=== PATIENT | male | born 1995 | race Caucasian/White ===

== ENCOUNTER 2021-05-13 11:24 | Inpatient (IN) ==
[2021-05-13] MEDS ORDERED: SODIUM CHLORIDE 0.9% 1,000 ML IV STA (11:58)
[2021-05-13] MEDS ORDERED: ALBUTEROL/IPRATROPIUM 3 ML NEB RESP TX STA (12:00)
[2021-05-13 12:33] LABS: Basophils % 0.2 % (0.0-0.8); Eosinophils # 0.1 10*3/uL (0.0-0.87); Eosinophils % 1.1 % (0.00-10.9); Hematocrit 42.5 VOL% (42.0-52.0); Hemoglobin 13.9 GM/DL (14.0-18.0); Immature Granulocytes % 0.6 %; Immature Granulocytes Absolute 0.07 #; Lymphocytes # 1.9 10*3/uL (1.4-4.0); Lymphocytes % 16.9 % (21.2-54.2); Mean Corpuscular HGB Conc 32.7 GM/DL (32-36); Mean Corpuscular Volume 87.4 FL (87-102); Mean Platelet Volume 10.7 FL (9.6-12.0); Monocytes % 8.8 % (1.7-12.7); Neutrophils % 72.4 % (38.7-73.9); Platelet Count 206 T/CUMM (130-400); Red Blood Count 4.86 MC/CUMM (3.8-5.5)
[2021-05-13 12:50] LABS: Albumin 2.9 G/DL (3.4-5.0); Bilirubin,Total 0.5 MG/DL (0.20-1.00); Calcium 9.3 MG/DL (8.5-10.1); Osmolality,Calculated 281.4 MOS/KG (273-304); Potassium 3.8 MMOL/L (3.5-5.1); Total Protein 7.6 G/DL (6.4-8.2)
[2021-05-13 13:35] LABS: Ferritin 1236.5 ng/ml (26-388)
[2021-05-13] MEDS ORDERED: ONDANSETRON 4 MG/2 ML VIAL IV PRN (17:22)
[2021-05-13] MEDS ORDERED: ACETAMINOPHEN 325 MG TABLET PO PRN (17:22)
[2021-05-13] MEDS ORDERED: GLUCAGON 1 MG VIAL IM PRN (17:22)
[2021-05-13] MEDS ORDERED: DEXTROSE 50% 25 GM/50 ML VIAL IV PRN (17:22)
[2021-05-13] MEDS ORDERED: AZITHROMYCIN INJ 500 MG in SODIUM CHLORIDE 0.9% 250 ML IV ONE (17:26)
[2021-05-13] MEDS ORDERED: MELATONIN 3 MG TABLET PO PRN (17:26)
[2021-05-13] MEDS: ENOXAPARIN 40 MG/0.4 ML SYRINGE SUBCUT SCH ×2 (17:45→21:08)
[2021-05-13] MEDS ORDERED: IVERMECTIN 3 MG TABLET PO SCH (18:30)
[2021-05-13] MEDS: FAMOTIDINE 20 MG TABLET PO SCH (21:07)
[2021-05-13] MEDS: ASCORBIC ACID 500 MG TABLET PO SCH (21:07)
[2021-05-13] MEDS: cefTRIAXone 1,000 MG in SODIUM CHLORIDE 0.9% 100 ML IV SCH (21:08)
[2021-05-14] MEDS: BENZONATATE 100 MG CAPSULE PO PRN ×3 (04:48→13:12)
[2021-05-14 06:20] LABS: Basophils % 0.4 % (0.0-0.8); Eosinophils # 0.2 10*3/uL (0.0-0.87); Eosinophils % 2.3 % (0.00-10.9); Hematocrit 36.7 VOL% (42.0-52.0); Immature Granulocytes % 0.6 %; Immature Granulocytes Absolute 0.05 #; Lymphocytes # 1.8 10*3/uL (1.4-4.0); Mean Corpuscular HGB Conc 32.7 GM/DL (32-36); Mean Corpuscular Volume 89.3 FL (87-102); Mean Platelet Volume 9.5 FL (9.6-12.0); Monocytes % 10.1 % (1.7-12.7); Neutrophils % 64.6 % (38.7-73.9); Platelet Count 237 T/CUMM (130-400); Red Blood Count 4.11 MC/CUMM (3.8-5.5); White Blood Count 8.2 T/CUMM (4-12)
[2021-05-14 06:51] LABS: Band Neutrophils 1 % (0-10); Eosinophils 2 % (0-10); Lymphocytes 17 % (20-55); Platelet Estimate Normal; Segmented Neutrophils 73 % (50-85); Total Cells Counted 100
[2021-05-14 06:54] LABS: Albumin 2.5 G/DL (3.4-5.0); Bilirubin,Total 0.5 MG/DL (0.20-1.00); Osmolality,Calculated 271.8 MOS/KG (273-304); Potassium 3.8 MMOL/L (3.5-5.1); Total Protein 6.6 G/DL (6.4-8.2)
[2021-05-14 06:55] LABS: Ferritin 893.2 ng/ml (26-388)
[2021-05-14] MEDS: DEXAMETHASONE 4 MG/1 ML VIAL IV SCH (09:00)
[2021-05-14] MEDS: ZINC GLUCONATE 50 MG TABLET PO SCH (09:01)
[2021-05-14] MEDS: ASCORBIC ACID 500 MG TABLET PO SCH ×2 (09:01→20:16)
[2021-05-14] MEDS: CHOLECALCIFEROL 1,000 UNIT TABLET PO SCH (09:01)
[2021-05-14] MEDS: FAMOTIDINE 20 MG TABLET PO SCH ×2 (09:01→20:16)
[2021-05-14] MEDS: AZITHROMYCIN 250 MG TABLET PO SCH (09:01)
[2021-05-14] MEDS: CETIRIZINE 10 MG TABLET PO SCH (09:01)
[2021-05-14] MEDS: ACETAMINOPHEN/CODEINE 120-12 MG/5 ML 12.5 ML UDCUP PO PRN ×2 (11:17→15:37)
[2021-05-14] MEDS ORDERED: REMDESIVIR 200 MG in SODIUM CHLORIDE 0.9% 210 ML IV ONE (15:00)
[2021-05-14] MEDS: ENOXAPARIN 40 MG/0.4 ML SYRINGE SUBCUT SCH (17:39)
[2021-05-14] MEDS: cefTRIAXone 1,000 MG in SODIUM CHLORIDE 0.9% 100 ML IV SCH (20:18)
[2021-05-15 06:11] LABS: Ferritin 599.6 ng/mL (26-388)
[2021-05-15 06:25] LABS: Basophils % 0.2 % (0.0-0.8); Eosinophils % 0.4 % (0.00-10.9); Hematocrit 35.9 VOL% (42.0-52.0); Immature Granulocytes % 0.5 %; Immature Granulocytes Absolute 0.05 #; Lymphocytes # 2.1 10*3/uL (1.4-4.0); Lymphocytes % 22.5 % (21.2-54.2); Mean Corpuscular HGB Conc 33.4 GM/DL (32-36); Mean Corpuscular Volume 88.6 FL (87-102); Mean Platelet Volume 10.5 FL (9.6-12.0); Monocytes % 8.1 % (1.7-12.7); NRBC # 0.02 10*3/uL; Neutrophils % 68.3 % (38.7-73.9); Platelet Count 252 T/CUMM (130-400); Red Blood Count 4.05 MC/CUMM (3.8-5.5); Red Cell Distribution Width 11.9 % (9.3-17.3); White Blood Count 9.3 T/CUMM (4-12)
[2021-05-15] MEDS: AZITHROMYCIN 250 MG TABLET PO SCH (08:29)
[2021-05-15] MEDS: CETIRIZINE 10 MG TABLET PO SCH (08:29)
[2021-05-15] MEDS: ASCORBIC ACID 500 MG TABLET PO SCH ×2 (08:29→20:29)
[2021-05-15] MEDS: DEXAMETHASONE 4 MG/1 ML VIAL IV SCH (08:29)
[2021-05-15] MEDS: FAMOTIDINE 20 MG TABLET PO SCH ×2 (08:30→20:29)
[2021-05-15] MEDS: CHOLECALCIFEROL 1,000 UNIT TABLET PO SCH (08:30)
[2021-05-15] MEDS: ZINC GLUCONATE 50 MG TABLET PO SCH (08:30)
[2021-05-15] MEDS: BENZONATATE 100 MG CAPSULE PO PRN (08:30)
[2021-05-15] MEDS: REMDESIVIR 100 MG in SODIUM CHLORIDE 0.9% 100 ML IV SCH (08:47)
[2021-05-15 12:06] LABS: Albumin 2.4 G/DL (3.4-5.0); Bilirubin,Total 0.5 MG/DL (0.20-1.00); Potassium 4.8 MMOL/L (3.5-5.1)
[2021-05-15] MEDS: ACETAMINOPHEN/CODEINE 120-12 MG/5 ML 12.5 ML UDCUP PO PRN ×2 (12:06→17:19)
[2021-05-15 12:08] LABS: Total Protein 6.5 G/DL (6.4-8.2)
[2021-05-15] MEDS: ENOXAPARIN 40 MG/0.4 ML SYRINGE SUBCUT SCH (17:16)
[2021-05-15] MEDS: cefTRIAXone 1,000 MG in SODIUM CHLORIDE 0.9% 100 ML IV SCH (20:30)
[2021-05-16 05:58] LABS: Basophils % 0.4 % (0.0-0.8); Eosinophils # 0.1 10*3/uL (0.0-0.87); Hematocrit 36.6 VOL% (42.0-52.0); Hemoglobin 12.3 GM/DL (14.0-18.0); Immature Granulocytes % 0.8 %; Immature Granulocytes Absolute 0.08 #; Lymphocytes % 31.3 % (21.2-54.2); Mean Corpuscular HGB Conc 33.6 GM/DL (32-36); Mean Corpuscular Volume 88.2 FL (87-102); Mean Platelet Volume 9.7 FL (9.6-12.0); Monocytes % 7.4 % (1.7-12.7); Neutrophils % 59.1 % (38.7-73.9); Platelet Count 296 T/CUMM (130-400); Red Blood Count 4.15 MC/CUMM (3.8-5.5); White Blood Count 9.6 T/CUMM (4-12)
[2021-05-16 06:32] LABS: Alanine Aminotransferase 90 U/L (16-61); Albumin 2.4 G/DL (3.4-5.0); Alkaline Phosphatase 90 U/L (45-117); Aspartate Amino Transferase 49 U/L (0-37); Bilirubin,Total < 0.39 MG/DL (0.20-1.00); Blood Urea Nitrogen 14 MG/DL (7-18); Calcium 8.7 MG/DL (8.5-10.1); Carbon Dioxide 24 MMOL/L (21-32); Estimated Glom Filtration Rate 155 ML/MIN; Glucose 110 MG/DL (74-106); Osmolality,Calculated 282.3 MOS/KG (273-304); Potassium 3.8 MMOL/L (3.5-5.1); Sodium 141 MMOL/L (136-145); Total Protein 6.3 G/DL (6.4-8.2)
[2021-05-16 06:36] LABS: Ferritin 445.4 ng/mL (26-388)
[2021-05-16 06:45] LABS: Lymphocytes 24 % (20-55); Segmented Neutrophils 71 % (50-85); Total Cells Counted 100
[2021-05-16 06:46] LABS: Hypochromasia Slight; Microcytosis Slight; Platelet Estimate Adequate
[2021-05-16] MEDS: CETIRIZINE 10 MG TABLET PO SCH (09:02)
[2021-05-16] MEDS: FAMOTIDINE 20 MG TABLET PO SCH ×2 (09:02→21:23)
[2021-05-16] MEDS: ASCORBIC ACID 500 MG TABLET PO SCH ×2 (09:02→21:23)
[2021-05-16] MEDS: ACETAMINOPHEN/CODEINE 120-12 MG/5 ML 12.5 ML UDCUP PO PRN (09:02)
[2021-05-16] MEDS: CHOLECALCIFEROL 1,000 UNIT TABLET PO SCH (09:02)
[2021-05-16] MEDS: AZITHROMYCIN 250 MG TABLET PO SCH (09:02)
[2021-05-16] MEDS: ZINC GLUCONATE 50 MG TABLET PO SCH (09:02)
[2021-05-16] MEDS: DEXAMETHASONE 4 MG/1 ML VIAL IV SCH (09:03)
[2021-05-16] MEDS: REMDESIVIR 100 MG in SODIUM CHLORIDE 0.9% 100 ML IV SCH (09:50)
[2021-05-16] MEDS ORDERED: ALBUTEROL INHALER 18 GM INH PRN (11:06)
[2021-05-16] MEDS: ALBUTEROL INHALER 18 GM INH SCH ×2 (16:04→21:23)
[2021-05-16] MEDS: BENZONATATE 100 MG CAPSULE PO PRN (16:08)
[2021-05-16] MEDS: ENOXAPARIN 40 MG/0.4 ML SYRINGE SUBCUT SCH (16:43)
[2021-05-16] MEDS: cefTRIAXone 1,000 MG in SODIUM CHLORIDE 0.9% 100 ML IV SCH (21:23)
[2021-05-17] MEDS: ALBUTEROL INHALER 18 GM INH SCH ×4 (00:18→13:40)
[2021-05-17 05:17] LABS: Basophils % 0.4 % (0.0-0.8); Eosinophils # 0.1 10*3/uL (0.0-0.87); Eosinophils % 1.3 % (0.00-10.9); Hematocrit 37.6 VOL% (42.0-52.0); Hemoglobin 12.3 GM/DL (14.0-18.0); Immature Granulocytes % 1.8 %; Lymphocytes # 3.6 10*3/uL (1.4-4.0); Lymphocytes % 32.9 % (21.2-54.2); Mean Corpuscular HGB Conc 32.7 GM/DL (32-36); Mean Corpuscular Volume 88.9 FL (87-102); Mean Platelet Volume 9.8 FL (9.6-12.0); Monocytes % 7.1 % (1.7-12.7); Neutrophils % 56.5 % (38.7-73.9); Platelet Count 328 T/CUMM (130-400); Red Blood Count 4.23 MC/CUMM (3.8-5.5); Red Cell Distribution Width 11.9 % (9.3-17.3); White Blood Count 10.9 T/CUMM (4-12)
[2021-05-17 05:32] LABS: Alanine Aminotransferase 188 U/L (16-61); Albumin 2.6 G/DL (3.4-5.0); Alkaline Phosphatase 93 U/L (45-117); Aspartate Amino Transferase 128 U/L (0-37); Bilirubin,Total < 0.39 MG/DL (0.20-1.00); Blood Urea Nitrogen 14 MG/DL (7-18); Calcium 8.6 MG/DL (8.5-10.1); Carbon Dioxide 24 MMOL/L (21-32); Estimated Glom Filtration Rate 155 ML/MIN; Glucose 96 MG/DL (74-106); Osmolality,Calculated 273.8 MOS/KG (273-304); Potassium 3.7 MMOL/L (3.5-5.1); Sodium 137 MMOL/L (136-145); Total Protein 6.4 G/DL (6.4-8.2)
[2021-05-17 05:45] LABS: Ferritin 465.2 ng/mL (26-388)
[2021-05-17 05:53] LABS: Atypical Lymphocytes Few; Hypochromasia 1+; Lymphocytes 39 % (20-55); Segmented Neutrophils 56 % (50-85); Total Cells Counted 100
[2021-05-17 05:54] LABS: Microcytosis Slight; Platelet Estimate Normal
[2021-05-17] MEDS: DEXAMETHASONE 4 MG/1 ML VIAL IV SCH (09:27)
[2021-05-17] MEDS: ZINC GLUCONATE 50 MG TABLET PO SCH (09:31)
[2021-05-17] MEDS: CHOLECALCIFEROL 1,000 UNIT TABLET PO SCH (09:31)
[2021-05-17] MEDS: FAMOTIDINE 20 MG TABLET PO SCH (09:31)
[2021-05-17] MEDS: CETIRIZINE 10 MG TABLET PO SCH (09:32)
[2021-05-17] MEDS: AZITHROMYCIN 250 MG TABLET PO SCH (09:32)
[2021-05-17] MEDS: ASCORBIC ACID 500 MG TABLET PO SCH (09:32)
[2021-05-17] MEDS: REMDESIVIR 100 MG in SODIUM CHLORIDE 0.9% 100 ML IV SCH (11:41)
[2021-05-17 13:47] VITALS: BP 117/62
[2021-05-18] MEDS ORDERED: predniSONE 20 MG TABLET PO SCH (09:00)
== END 2021-05-17 14:20 | disposition home or self-care (01) | DRG 177 ==
LOC: N.ED 11:24 → N.EDINP 11:24 → N.2E 18:22
PROVIDERS: ADMIT Internal Medicine; ATTEND Internal Medicine